=== PATIENT | female | born 1965 | race Caucasian/White ===

== ENCOUNTER 2024-12-22 22:13 | Inpatient (IN) | payer OTHER, SELFPAY ==
[2024-12-22 15:43] VITALS: BP 105/72
[2024-12-22 16:05] LABS: Urine Albumin 2+ (Neg - Trace); Urine Bilirubin Negative (Negative); Urine Character Slightly Cloudy (Clear); Urine Color Yellow; Urine Glucose Negative (Negative); Urine Ketone 1+ (Negative); Urine Leukocyte 3+ (Negative); Urine Nitrite Negative (Negative); Urine Occult Blood 4+ (Negative); Urine Specific Gravity 1.005 (<1.030); Urine Urobilinogen 1+ (Neg - 1+)
[2024-12-22 16:07] LABS: % Basophils 0.2 % (0-2); % Eosinophils 0.1 % (0-6); % Immature Granulocytes 0.4 % (0-0.5); % Lymphocytes 7.7 % (20.5-51.1); % Monocytes 12.2 % (1.7-9.3); % Neutrophils 79.4 % (42.2-75.2); Absolute Immature Granulocytes 0.1 10^3/uL (0-0.05); Absolute Lymphocytes 1.1 10^3/uL (1.2-3.4); Absolute Monocytes 1.7 10^3/uL (0.1-0.6); Absolute Neutrophils 11.3 10^3/uL (1.4-6.5); Hematocrit 38.7 % (39.0-52.0); Hemoglobin 13.3 g/dL (13.0-18.0); Mean Corp Hgb Conc. 34.4 g/dL (33.0-37.0); Mean Corpuscular Hgb 30.6 pg (27.0-31.0); Mean Platelet Volume 11.8 fL (7.4-10.4); Nucleated Red Blood Cells % 0 % (-); Platelet Count 217 10^3/uL (130-400); Red Blood Cell Count 4.35 10^6/uL (4.70-6.10); Red Cell Dist. Width 13.5 % (11.5-14.5); White Blood Cell Count 14.2 10^3/uL (4.8-10.8)
[2024-12-22 16:12] LABS: Urine Bacteria Many (Negative); Urine White Cell 70-80 /HPF (0-5)
[2024-12-22 16:17] LABS: ALT (SGPT) 99 U/L (0-50); AST (SGOT) 56 U/L (17-59); Alkaline Phosphatase 86 U/L (38-126); Blood Urea Nitrogen 8 mg/dl (9-20); Calcium 9.4 mg/dl (8.4-10.2); Carbon Dioxide 22 mmol/L (22-30); Chloride 109 mmol/L (98-107); Glucose 157 mg/dl (70-99); Potassium 4.2 mmol/L (3.5-5.1); Sodium 136 mmol/L (135-145); Total Bilirubin 0.9 mg/dl (0.2-1.3); Total Protein 6.7 g/dl (6.3-8.2); eGFR > 60.00
[2024-12-22] MEDS: NSS 1000 IV (20:07)
[2024-12-22] MEDS: TORADOL 30 MG IV (20:08)
[2024-12-22 20:18] VITALS: BMI 28.5
[2024-12-22 20:25] VITALS: BP 100/64
--- NOTE | 2024-12-22 21:40 | ED.GENMED ---
History of Present Illness
General
Chief Complaint: Flank Pain
Source: patient
Exam Limitations: none
Time Seen by Provider: 12/22/24 19:46
Nursing documentation reviewed up to this point in time: agreed with
History of Present Illness
History of Present Illness:
Patient to ED wt complaint of right flank pain. Symptoms started this weekend. Report nausea, and fever. History of kidney stones but pain tonight is worse. Brought to ED by spouse for eval.l
Past History
Past History
ED Past Medical History: Hypercholesterolemia
Review of Systems
Review of Systems
Allergies reviewed?: Yes
All Other Systems: ROS reviewed and negative except as documented in HPI and ROS
Constitutional: Reports fever
EENT: Reports no symptoms
Respiratory: Reports no symptoms
Cardiac: Reports no symptoms
ABD/GI: Reports nausea
: Reports flank pain
Musculoskeletal: Reports no symptoms
Skin: Reports no symptoms
Neurological: Reports no symptoms
Psychiatric: Reports no symptoms
Phy Exam
General Physical Exam
General Presentation: moderate distress
General age: appears stated age
General Skin: warm and dry
General Habitus: normal
General Mental: alert
Cardiovascular Exam
Cardiovascular Exam: regular rate/rhythm and no edema
Gastrointestinal Exam
Gastrointestinal Exam: normal bowel sounds, soft, no organomegaly, no pulsatile mass, non distended and cva tenderness (right)
Musculoskeletal Exam
Musculoskeletal Exam: full ROM and neuro vasc intact
Skin Exam
Skin Exam: normal color, warm/dry and no rash
Psychiatric Exam
Psychiatric Exam: normal mood/affect
Course
Orders/Labs/Results
Orders:
Orders
12/22/24 15:50
Complete Blood Count/With Diff Urgent
Comprehensive Metabolic Panel Urgent
Urinalysis Reflex To Culture Urgent
Date Specimen was Collected: 12/22/24
Time Specimen was Collected: 15:47
Urine Microscopic Reflex Cult Urgent
Urine Culture Urgent
JANELLE Source: U
Specimen Description:
Date Specimen was Collected: 12/22/24
Time Specimen was Collected: 15:47
12/22/24 19:29
CT Abd/pel Without Iv Or Oral Urgent
Comment:
Reason For Exam: right flank pain, hematuria, UTI
12/22/24 19:58
0.9% Sodium Chloride 1000 ml [Nss] 1,000 ml IV BOLUS
Ketorolac [Toradol] 30 mg IV NOW STA
12/22/24 21:28
Cefepime HCl [Maxipime] 2,000 mg IV NOW STA
12/22/24 21:43
Admit/Transfer Patient As Directed
Co-Sign Provider:
Level of Care: Inpatient admission
Assign to:: Medical/Surgical
Physician / Group: hospitalist
Diagnosis: right nephrolithiasis
Reason for Hospitalization: nephrolithiasis, uti
Expected length of stay greater than two midnights?: Yes
ELOS- Estimated Length of Stay in days: 2
I certify the patient meets the requirements for IP care: Yes
PRN Pain Medication Management As Directed
May give lesser potent ordered pain med per pt: Yes
preference::
Protocol:: Medication orders for pain may be administered in a
manner that supports deferring to patient preference
when the pt is:
- Requesting an ordered lesser potent pain medication.
Least to most potent pain medications are defined
as: acetaminophen < NSAID < tramadol < opioids
(morphine, oxycodone, hydromorphone).
- Requesting a lesser dose of the same medication IF
ORDERED.
- Requesting a less intrusive route of administration
if both routes are prescribed by the provider (PO <
IV).
12/22/24 21:44
Code Status As Directed
Resuscitation Status: Full Code
Sterile Water [Sterile Water For Injection] 10 ml .ROUTE .K-MED ONE
12/22/24 21:47
Blood Culture Urgent
JANELLE Source: Blood/Venous
Specimen Description:
Abnormal Lab Results
12/22/24
15:50
WBC 14.2 H 10^3/uL
(4.8-10.8)
RBC 4.35 L 10^6/uL
(4.70-6.10)
Hct 38.7 L %
(39.0-52.0)
MPV 11.8 H fL
(7.4-10.4)
Abs Immat Gran (auto) 0.1 H 10^3/uL
(0-0.05)
Absolute Neuts (auto) 11.3 H 10^3/uL
(1.4-6.5)
Absolute Lymphs (auto) 1.1 L 10^3/uL
(1.2-3.4)
Absolute Monos (auto) 1.7 H 10^3/uL
(0.1-0.6)
Neutrophils % 79.4 H %
(42.2-75.2)
Lymphocytes % 7.7 L %
(20.5-51.1)
Monocytes % 12.2 H %
(1.7-9.3)
Chloride 109 H mmol/L
(98-107)
BUN 8 L mg/dl
(9-20)
Creatinine 0.6 L mg/dL
(0.7-1.3)
Glucose 157 H mg/dl
(70-99)
ALT 99 H U/L
(0-50)
Urine Ketones 1+ A
(Negative)
Ur Occult Blood Reflex 4+ A
(Negative)
Leukocyte Esterase Rfl 3+ A
(Negative)
Urine RBC 3-6 A /HPF
(0-2)
Urine WBC (Reflex) 70-80 A /HPF
(0-5)
Urine Bacteria (Reflex) Many A
(Negative)
Urine Albumin (Reflex) 2+ A
(Neg - Trace)
12/22/24 15:50
12/22/24 15:50
Vital Signs
Initial and Last Documented VS:
Initial Vital Signs
Temp Pulse Resp BP Pulse Ox
100.4 F H 104 20 105/72 97
12/22/24 15:43 12/22/24 15:43 12/22/24 15:43 12/22/24 15:43 12/22/24 15:43
Last Documented Vital Signs
Temp Pulse Resp BP Pulse Ox
99.8 F 82 18 123/79 96
12/22/24 20:25 12/23/24 00:00 12/23/24 00:00 12/23/24 00:00 12/23/24 00:00
*Radiology
Radiology exam reviewed: radiology read reviewed
*Pulse Oximetry
Patient hypoxic: no
*Critical Care Note
Total Time (30-74mins, 75-104mins- exclusive of procedures): Not Applicable
Update Note
Update Note:
Patient to ED with complaint of right flank pain. CT tonight confirms 3.3mm obstructive right mid ureter stone with mild to moderate hydroureteronephrosis. Temp max 99.8 here tonight but reports temp >101 at home. WBC 14, UA reflecting UTI. Will
admit to hospitalists service. Cefepime started in dept. NPO after midnight, for stent placement tomorrw.
ED Attending Note
-
Portions of this chart may have been created with voice recognition software.� Occasional wrong word or��sound alike� substitutions may have occurred due to the inherent limitations of voice recognition software.
Discharge Plan
Departure
Patient Disposition: Admit
Date of Disposition: 12/22/24
Time of Disposition: 21:45
Presentation/result/management discussed w/ accepting MD/DO: Hospitalist
Patient with high blood pressure during this ER visit?: No
Condition: Fair
Covid-19: Not Applicable
Discharge Problem:
Kidney stone, UTI (urinary tract infection)
Interventions
Interventions:
*Risk Screen - Suicide Last Done: 12/22/24 15:43
*General Assessment Last Done: 12/22/24 15:43
*Neglect/Abuse Screening Last Done: 12/22/24 20:22
*ED- Fall Risk Assessment Last Done: 12/22/24 20:22
*ED COVID-19 Vaccine History Last Done: 12/22/24 20:22
US-Nmiyrs-Owdwyhlbdd Assessment Last Done: 12/22/24 20:25
ED-Male Genitourinary Assessment Last Done: 12/22/24 20:25
--- NOTE | 2024-12-22 21:47 | HPS.HSE ---
Family Physician
-
Family Physician: Ruperto Benitez
Chief Complaint
-
Flank pain
History of Present Illness
This is a 59-year-old female with past medical history significant for hypertension, hyperlipidemia, nephrolithiasis who presents to the emergency department with approximately 2 days of right-sided flank pain with later development of fevers and
chills.
Patient reported that she arose on Sunday with right-sided flank pain. She had nausea but no vomiting. She reports that extremity send of a prior episode of nephrolithiasis when she had a left-sided flank pain and was found to have a left-sided
stone. She did not try to take some medications to control her pain. However despite this she started having fevers the following day. Due to the fever she decided come to the emergency department. She denies any recent use of antibiotics. She
denies any recent travels or sick contacts.
In the ED patient had a temp of 100.4, blood pressure 100/60 with a pulse rate of 98. She was satting 97% on room air.
She had a white count of 14.2, hemoglobin 13.3 and platelet count of 200. Electrolytes were normal. BUN/creatinine were complete normal. Glucose was normal.
UA was positive for leukocyte esterase negative for nitrates, has WBCs and moderate bacteria.
CT of the abdomen pelvis showed a 3.3 mm calculus in the mid distal right ureter with mild to moderate obstructive hydro
Medical History
Past Medical History
Past Medical History: Reports HTN, Hypercholesterolemia and Other (Nephrolithiasis)
Past Surgical History: Reports
Social History
Tobacco: Non-smoker
Alcohol: Occasional
Drug: None
Personal:
Living: With Family
Family History
Family History: Not pertinent
Allergies / Home Medications
Allergies reflects when Allergies were last updated in [facility].
Home Medications with original date entered in [facility]
Allergy/Medication List:
Allergies
Allergy/AdvReac Type Severity Reaction Status Date / Time
No Known Allergies Allergy Unverified 12/22/24 15:47
Home Medications
atorvastatin 20 mg tablet 20 mg PO QPM 12/22/24
Valsartan 80 mg tablet, 80 mg p.o. daily 12/22/24
Metoprolol tartrate 25 mg tablet, 5 mg p.o. twice daily
Review of Systems
-
History Source: Patient
Constitutional: Reports No Symptoms
EENT: Reports No Symptoms
Respiratory: Reports No Symptoms
Cardiac: Reports No Symptoms
Abdomen/GI: Reports No Symptoms
: Reports Flank Pain
Musculoskeletal: Reports No Symptoms
Skin: Reports No Symptoms
Neurological: Reports No Symptoms
Endocrine: Reports No Symptoms
Hematologic/Lymphatic: Reports No Symptoms
Psych: Reports No Symptoms
Physical Exam
Vital Signs
Vital Signs
Temp Pulse Resp BP Pulse Ox
99.8 F 98 28 100/64 91
12/22/24 20:25 12/22/24 20:25 12/22/24 20:25 12/22/24 20:25 12/22/24 20:25
Physical Exam
General: Well Developed, Well Nourished, No Apparent Distress and Comfortable
HEENT: NormoCephalic, Anicteric and Moist mucous membranes
Respiratory: Clear
Cardiac: S1/S2 and Regular Rhythm
GI: Soft, Non Tender, Non Distended and Normal Bowel Sounds
Rectal: Deferred by Provider
Genito-urinary: Deferred by me
Musculoskeletal: No Clubbing, No Cyanosis and No Edema
Skin: Warm
Neuro: AO x 3 and Nonfocal/grossly intact
Hematologic/Lymphatic: No Lymphadenopathy
Psych: Calm
Laboratory Results
-
12/22/24 15:50
12/22/24 15:50
Laboratory Results
Total Bilirubin 0.9 mg/dl (0.2-1.3) 12/22/24 15:50
AST 56 U/L (17-59) 12/22/24 15:50
ALT 99 U/L (0-50) H 12/22/24 15:50
Alkaline Phosphatase 86 U/L (38-126) 12/22/24 15:50
Data Reviewed
-
CT Scan: Report Reviewed by me
Lab Data: Labs Reviewed by me
Old Records: Reviewed
Impression/Plan
-
IMPRESSION:
59-year-old female with recurrent nephrolithiasis who presents with right-sided flank pain and was found to have a fever of 200.4. She has leukocytosis and a positive UA. Concern for infected stone. Patient is currently hemodynamically stable and
in no acute distress. Plan to go to the OR tomorrow for stone extraction.
PLAN:
Nephrolithiasis complicated by urinary tract infection
� Admit to MedSurg
� N.p.o. after midnight
� Blood and urine culture sent
� Continue antibiotics with IV cefepime 2 g daily
� IV fluids
� Pain control and antiemetics
� Urology consulted and aware and patient going to the OR in a.m.
DVT prophylaxis�SCDs for now, can restart medical anticoagulation after procedure
CODE STATUS�full code
[2024-12-22] MEDS: MAXIPIME 2000 MG IV (21:54)
[2024-12-22 22:00] VITALS: BP 100/62
[2024-12-22 23:00] VITALS: BP 124/76
[2024-12-23] VITALS: BP 123/79
[2024-12-23 00:18] VITALS: BP 123/79
[2024-12-23 00:54] VITALS: BP 111/68; BMI 27.7
[2024-12-23] MEDS: NSS 1000 IV (01:14)
[2024-12-23] MEDS: ROCEPHIN 2000 MG IV (05:07)
[2024-12-23] MEDS: STERILE WATER FOR INJECTION 20 ML IV (05:07)
[2024-12-23 06:53] LABS: Blood Urea Nitrogen 10 mg/dl (7-17); Calcium 8.8 mg/dl (8.4-10.2); Carbon Dioxide 20 mmol/L (22-30); Chloride 115 mmol/L (98-107); Estimated Creatinine Clearance 96 ml/min; Glucose 125 mg/dl (70-99); Potassium 4.1 mmol/L (3.5-5.1); Sodium 140 mmol/L (135-145); eGFR > 60.00
[2024-12-23 06:54] LABS: Hematocrit 34.7 % (37.0-47.0); Hemoglobin 11.8 g/dL (12.0-16.0); Mean Corpuscular Hgb 30.4 pg (27.0-31.0); Mean Corpuscular Volume 89.4 fL (81.0-99.0); Mean Platelet Volume 12.5 fL (7.4-10.4); Platelet Count 186 10^3/uL (130-400); Red Blood Cell Count 3.88 10^6/uL (4.20-5.40); Red Cell Dist. Width 13.5 % (11.5-14.5); White Blood Cell Count 12.8 10^3/uL (4.8-10.8)
--- NOTE | 2024-12-23 07:10 | CONS.URO ---
Consultation
-
Date/Time Consultation Performed: 12/23/24 0700
Requesting Provider: ED
Performing Provider: Rico
Reason for Consultation: UTI, obstructing right ureteral stone
Medical History
History of Present Illness
59F w/ h/o nephrolithiasis (on left side - passed) presenting w/ 2 days of right flank pain, fevers, chills.
Noted fever of 101F at home on weekend.
+nausea, poor appetite.
Temp 99.8F in ED.
UA grossly positive for UTI - 70-80 WBCs, many bacteria, negative nitrites.
Past Medical History
Past Medical History: HTN, Hypercholesterolemia and Other (nephrolithiasis)
Past Surgical History:
Social History
Tobacco: Non-smoker
Alcohol: Occasional
Drug: None
Personal:
Living: With Family
Family History
Family History: Reviewed & Not Pertinent
Allergies/Home Medications
Allergies
Allergy/AdvReac Type Severity Reaction Status Date / Time
No Known Allergies Allergy Unverified 12/22/24 15:47
Home Medications
�Medication �Instructions �Recorded �Confirmed �Type
atorvastatin 40 mg tablet 20 mg PO QPM High Cholesterol 12/22/24 12/22/24 History
metoprolol succinate 25 mg 25 mg PO DAILY Blood Pressure 12/22/24 12/22/24 History
tablet,extended release 24 hr
valsartan 80 mg tablet 80 mg PO DAILY Blood Pressure 12/22/24 12/22/24 History
Review of Systems
-
History Source: Patient
A 12 point Review of Systems was completed except as noted: Yes
Physical Exam
Vital Signs
Vital Signs
Temp Pulse Resp BP Pulse Ox
97.8 F 75 20 111/68 96
12/23/24 00:54 12/23/24 00:54 12/23/24 00:54 12/23/24 00:54 12/23/24 00:54
Lab / Testing Results
Laboratory Results
12/23/24 05:58
12/23/24 05:58
Physical Exam
General: Well Developed, Well Nourished and No Apparent Distress
HEENT: Normocephalic and Anicteric
Respiratory: Non Labored Respirations
Cardiac: Regular Rhythm
Breast: Deferred by me
GI: Soft, Non Tender and Non Distended
Rectal: Deferred by Provider
Musculoskeletal: No Edema
Neuro: AO x 3, No Motor Deficits and Nonfocal/Grossly Intact
Psych: Calm and Intact Judgement
Assessment / Plan
-
cUTI in context of obstructive uropathy
Obstructing mid right ureteral stone
WBC: >14 => 12
Cr: 0.6
UA: 70-80 WBCs, many bacteria
UCx pending
CT => 3 mm stone in mid right ureter w/ mild right hydronephrosis, periureteral and perinephric stranding.
Detailed discussion including SDM had w/ patient regarding UTI in context of an obstructing stone and possibility of progression to SIRS/sepsis.
Reviewed risks, benefits, alternatives, and potential complications of ureteroscopy/laser lithotripsy/stone extraction/stent placement.
Potential risks and complications include but not limited to urosepsis, bleeding, ureteral/bladder injury, incontinence, risk of ureteral stricture formation, need for additional procedures/surgeries.
- NPO
- Continue IV Cefepime per Hospitalist pending UCx S/S
- Strain urine
- KUB this AM
- To OR this afternoon for RIGHT stent placement ONLY vs. RIGHT ureteroscopy/laser lithotripsy/stone extraction/stent placement (pending intraop findings)
- Surgical consent signed on chart
D/w patient this AM.
Data Reviewed
-
Total Time Spent with Patient (in minutes): 35
CT Scan: Image personally visualized and interpreted, Report Reviewed by Me, Discussed with Physician and Discussed with Patient
Lab Data: Labs Reviewed, Discussed with Physician and Discussed with Patient
Old Records: Reviewed
[2024-12-23 07:24] VITALS: BP 110/68
[2024-12-23 07:25] LABS: INR 1.12; PT 14.7 Sec (11.4-14.6)
[2024-12-23 07:26] LABS: APTT 36.2 Sec (23.4-35.0)
[2024-12-23] MEDS: LOPRESSOR 25 MG PO ×2 (07:40→19:27)
--- NOTE | 2024-12-23 08:50 | W.PN.HOSP.TC ---
Today's Communication/Plan
-
See PN
Assessment / Plan
Assessment / Plan
59yo F with HLD, HTN, Hx of nephrolithiasis on R came with fevers and R flank pain, found obstructive nephropathy with nephrolith in R ureter.
A/P:
#UTI with obstructive nephrolithiasis
IVF
Ceftriaxone pending Ucx
BCx NTD
Urology for intervention
follow kidney function
#Essential HTN
#HLD
cont home meds
DVT ppx on hep
FUll code
I have spent at least 57min reviewing chart, test results, communication with consultants and providing direct patient care
Anticipated Discharge: 24 - 48 hours
Subjective/Interval History
-
Date of Service: December 23, 2024
Objective Data
-
Labs:
Laboratory Results
12/23/24
05:58
WBC 12.8 H
Hgb 11.8 L
Hct 34.7 L
Plt Count 186
PT 14.7 H
INR 1.12
APTT 36.2 H
Sodium 140
Potassium 4.1
Chloride 115 H
Carbon Dioxide 20 L
BUN 10
Creatinine 0.6
Glucose 125 H
Calcium 8.8
Vital Signs:
Vital Signs
Temp Pulse Resp BP Pulse Ox
97.8 F 75 20 111/68 96
12/23/24 00:54 12/23/24 00:54 12/23/24 00:54 12/23/24 00:54 12/23/24 00:54
Review of Systems
-
History Source: Patient
All other systems: Reviewed and negative
Constitutional: Reports Fever
Physical Exam
-
General: No Apparent Distress
HEENT: Normocephalic
Respiratory: Clear to Auscultation
Cardiac: Regular Rhythm
GI: Soft, Nontender and Nondistended
Genito-urinary: Costovertebral Angle Tend (R)
Musculoskeletal: No Clubbing, No Cyanosis and No Edema
Skin: Warm
Neuro: Awake, Alert, Oriented and AO x 3
Psych: Calm
--- NOTE | 2024-12-23 10:27 | W.SUR.PREOP ---
Pre-Operative Surgical Note
-
I have examined this patient prior to the performance of the scheduled procedure.
The patient's condition is unchanged from the time of the current History and
Physical and the patient is able to undergo the scheduled procedure.
To OR this afternoon for right URS/LL/stone extraction/stent placement vs. stent placement only
Surgical consent signed on patient chart
Maintain NPO
Continue IV Cefepime
--- NOTE | 2024-12-23 12:27 | W.PN.UPDATE ---
Update Note
Progress Note Update
CT imaging reviewed this AM - stone is closer to 1-2 mm in size (punctate) in mid right ureter.
KUB obtained this AM => no radiopaque stone noted.
D/w patient - she is currently asymptomatic w/ regards to right flank/abdominal/pelvic pain.
Denies N/V.
Plan:
- Cancel OR plan
- Regular diet (ordered)
- Continue IV abx pending UCx S/S (prelim results + for UTI)
D/w patient.
D/w RN.
D/w Hospitalist.
--- NOTE | 2024-12-23 12:32 | CM ---
CM reviewed chart, patient seen bedside, initial assessment completed. Patient resides with her in a two story home, bedroom on second floor, two steps to enter. Patient is independent with ADLs/IADLs, denies use of DME, VN, or SNF. Patient
confirms PCP Ruperto Rm, pharmacy [facility]. Patient denies needs at this time. Patient on IV antibiotics. CM will continue to follow for all discharge planning needs.
Plan; home no needs likely
[2024-12-23 15:00] VITALS: BP 101/61
[2024-12-23] MEDS: LIPITOR 20 MG PO (16:15)
[2024-12-23] MEDS: TYLENOL 650 MG PO (19:32)
[2024-12-23 23:39] VITALS: BP 139/71
[2024-12-24] MEDS: STERILE WATER FOR INJECTION 20 ML IV (05:26)
[2024-12-24] MEDS: ROCEPHIN 2000 MG IV (05:26)
[2024-12-24] MEDS: DIOVAN 80 MG PO (07:56)
[2024-12-24] MEDS: LOPRESSOR 25 MG PO ×2 (07:56→19:47)
[2024-12-24 08:07] VITALS: BP 117/79
[2024-12-24 08:33] LABS: % Basophils 0.4 % (0-2); % Eosinophils 0.9 % (0-6); % Immature Granulocytes 0.4 % (0-0.5); % Lymphocytes 17.6 % (20.5-51.1); % Monocytes 16.2 % (1.7-9.3); % Neutrophils 64.5 % (42.2-75.2); Absolute Eosinophils 0.1 10^3/uL (0-0.7); Absolute Lymphocytes 1.6 10^3/uL (1.2-3.4); Absolute Monocytes 1.5 10^3/uL (0.1-0.6); Absolute Neutrophils 5.9 10^3/uL (1.4-6.5); Hematocrit 33.3 % (37.0-47.0); Hemoglobin 11.3 g/dL (12.0-16.0); Mean Corp Hgb Conc. 33.9 g/dL (33.0-37.0); Mean Corpuscular Hgb 30.7 pg (27.0-31.0); Mean Corpuscular Volume 90.5 fL (81.0-99.0); Mean Platelet Volume 12.2 fL (7.4-10.4); Nucleated Red Blood Cells % 0 %; Platelet Count 179 10^3/uL (130-400); Red Blood Cell Count 3.68 10^6/uL (4.20-5.40); Red Cell Dist. Width 13.7 % (11.5-14.5); White Blood Cell Count 9.1 10^3/uL (4.8-10.8)
[2024-12-24 09:05] LABS: ALT (SGPT) 133 U/L (0-35); AST (SGOT) 73 U/L (14-36); Albumin 3.3 g/dl (3.5-5.0); Alkaline Phosphatase 151 U/L (38-126); Blood Urea Nitrogen 11 mg/dl (7-17); Calcium 9.1 mg/dl (8.4-10.2); Carbon Dioxide 22 mmol/L (22-30); Chloride 112 mmol/L (98-107); Estimated Creatinine Clearance 96 ml/min; Glucose 107 mg/dl (70-99); Potassium 4.2 mmol/L (3.5-5.1); Sodium 141 mmol/L (135-145); Total Bilirubin 0.4 mg/dl (0.2-1.3); Total Protein 5.8 g/dl (6.3-8.2); eGFR > 60.00
--- NOTE | 2024-12-24 09:10 | W.PN.HOSP.TC ---
Today's Communication/Plan
-
RUQ US
Follow LFT
LEvaquin
Assessment / Plan
Assessment / Plan
59yo F with HLD, HTN, Hx of nephrolithiasis on R came with fevers and R flank pain, found obstructive nephropathy with nephrolith in R ureter. Repeated Abd XR did not show stone, so urology recommended against nephrolithiasis procedure. Cr remained
normal, R flank pain subsided. Ucx resulted and Levaquin planned and no leukocytosis and fever subsided, however LFT increased
A/P:
#UTI with 3.3 mm calculus in the mid to distal right ureter with mild to moderate obstructive uropathy
IVF
Levaquin
Ucx with K.pneumonia sensitive to fluoroquinolones - with concern for upper urinary tract infection - will treat as pyelonephritis
BCx NTD
Urology decided against intervention with improvement and absent stone on XR
kidney function normal
#Fatty liver disease
#Transaminitis
#Elevated Alk.phos
With R flank persistent discomfort - will order US RUQ to r/o cholecystitis, but no RUQ pain
Cannot exclude cholestasis 2/2 Abx- switch to Levaquin
Follow LFT
#Essential HTN
#HLD
cont home meds
DVT ppx on hep
FUll code
I have spent at least 57min reviewing chart, test results, communication with consultants and providing direct patient care
Anticipated Discharge: Within 24 hours
Subjective/Interval History
-
Date of Service: December 24, 2024
Objective Data
-
Labs:
Laboratory Results
12/24/24
06:54
WBC 9.1
Hgb 11.3 L
Hct 33.3 L
Plt Count 179
Sodium 141
Potassium 4.2
Chloride 112 H
Carbon Dioxide 22
BUN 11
Creatinine 0.6
Glucose 107 H
Calcium 9.1
Total Bilirubin 0.4
AST 73 H
ALT 133 H
Alkaline Phosphatase 151 H
Vital Signs:
Vital Signs
Temp Pulse Resp BP Pulse Ox
98 F 73 16 117/79 99
12/24/24 08:07 12/24/24 08:07 12/24/24 08:07 12/24/24 08:07 12/24/24 08:07
I&O
12/23/24 12/24/24 12/25/24
06:59 06:59 06:59
Intake Total 480 / 480
Balance 480 / 480
Review of Systems
-
History Source: Patient
All other systems: Reviewed and negative
Physical Exam
-
General: Well Nourished and No Apparent Distress
Neuro: Awake, Alert and AO x 3
Psych: Calm
[2024-12-24] MEDS: LEVAQUIN 750 MG PO (10:42)
[2024-12-24] MEDS: FLAGYL 500 MG 100 IV ×2 (10:42→17:20)
--- NOTE | 2024-12-24 11:51 | CM ---
CM reviewed chart, patient seen bedside, reports no needs to CM at this time. Plan remains home no needs. CM will continue to follow for all discharge planning needs.
Plan; home no needs anticipated
--- NOTE | 2024-12-24 11:51 | W.PN.UPDATE ---
Update Note
Progress Note Update
12/23: CTAP w/o IV contrast => stone is closer to 1-2 mm in size (punctate) in mid right ureter.
12/24: KUB obtained in AM => no radiopaque stone noted.
Patient notably asymptomatic w/ regards to right flank/abdominal/pelvic pain.
Denies N/V.
UCx: >100k Klebsiella pneumoniae (resistance to Ampicillin)
Recommendations:
- OK to d/c home from urologic perspective when ready
- PO antibiotic treatment course for cUTI on discharge
- F/U w/ Dr. Gómez in 1 month w/ outpatient RBUS
D/w patient.
D/w Hospitalist.
[2024-12-24 11:54] LABS: Lipase 27 U/L (23-300)
[2024-12-24 15:54] VITALS: BP 99/49
[2024-12-24] MEDS: LIPITOR 20 MG PO (17:20)
[2024-12-24 23:38] VITALS: BP 118/72
[2024-12-25] MEDS: FLAGYL 500 MG 100 IV (00:59)
[2024-12-25 07:25] LABS: % Basophils 0.5 % (0-2); % Eosinophils 2.7 % (0-6); % Immature Granulocytes 0.3 % (0-0.5); % Lymphocytes 29.7 % (20.5-51.1); % Monocytes 16.6 % (1.7-9.3); % Neutrophils 50.2 % (42.2-75.2); Absolute Eosinophils 0.2 10^3/uL (0-0.7); Absolute Lymphocytes 1.8 10^3/uL (1.2-3.4); Hematocrit 35.5 % (37.0-47.0); Hemoglobin 11.7 g/dL (12.0-16.0); Mean Corpuscular Hgb 29.4 pg (27.0-31.0); Mean Corpuscular Volume 89.2 fL (81.0-99.0); Nucleated Red Blood Cells % 0 %; Platelet Count 228 10^3/uL (130-400); Red Blood Cell Count 3.98 10^6/uL (4.20-5.40); Red Cell Dist. Width 13.4 % (11.5-14.5)
[2024-12-25] MEDS: LEVAQUIN 750 MG PO (07:36)
[2024-12-25] MEDS: DIOVAN 80 MG PO (07:36)
[2024-12-25] MEDS: LOPRESSOR 25 MG PO (07:36)
[2024-12-25 08:02] LABS: ALT (SGPT) 171 U/L (0-35); AST (SGOT) 76 U/L (14-36); Albumin 3.6 g/dl (3.5-5.0); Alkaline Phosphatase 204 U/L (38-126); Blood Urea Nitrogen 12 mg/dl (7-17); Calcium 9.2 mg/dl (8.4-10.2); Carbon Dioxide 22 mmol/L (22-30); Chloride 114 mmol/L (98-107); Estimated Creatinine Clearance 96 ml/min; Glucose 105 mg/dl (70-99); Potassium 4.2 mmol/L (3.5-5.1); Sodium 144 mmol/L (135-145); Total Bilirubin 0.5 mg/dl (0.2-1.3); Total Protein 6.1 g/dl (6.3-8.2); eGFR > 60.00
[2024-12-25 08:15] VITALS: BP 110/71
--- NOTE | 2024-12-25 11:30 | CM ---
CM reviewed chart, patient seen bedside, reports no needs to CM at this time. Plan remains home no needs. Patient reports her will provide transportation upon discharge. CM will continue to follow for all discharge planning needs.
Plan; home no needs anticipated
--- NOTE | 2024-12-25 12:21 | W.PN.HOSP.TC ---
Today's Communication/Plan
-
Unclear reason for LFT elevation, currently no clinical symptoms of biliary pathology. WIll get GI opinion
Assessment / Plan
Assessment / Plan
59yo F with HLD, HTN, Hx of nephrolithiasis on R came with fevers and R flank pain, found obstructive nephropathy with nephrolith in R ureter. Repeated Abd XR did not show stone, so urology recommended against nephrolithiasis procedure. Cr remained
normal, R flank pain subsided. Ucx resulted and Levaquin planned and no leukocytosis and fever subsided, however LFT increased
A/P:
#UTI with 3.3 mm calculus in the mid to distal right ureter with mild to moderate obstructive uropathy
IVF
Levaquin, QTc not prolonged. patient was counseled on side effects. No Hx of aneurism
Ucx with K.pneumonia sensitive to fluoroquinolones - with concern for upper urinary tract infection - will treat as pyelonephritis
BCx NTD
Urology decided against intervention with improvement and absent stone on XR
kidney function normal
#Fatty liver disease
#Transaminitis
#Elevated Alk.phos
With R flank persistent discomfort - will order
US RUQ neg for cholecystitis
no RUQ pain
Cannot exclude cholestasis 2/2 Abx- switch to Levaquin
GI consult
#Essential HTN
#HLD
cont home meds
DVT ppx on hep
FUll code
I have spent at least 57min reviewing chart, test results, communication with consultants and providing direct patient care
Anticipated Discharge: Within 24 hours
Subjective/Interval History
-
Date of Service: December 25, 2024
Objective Data
-
Labs:
Laboratory Results
12/25/24
06:55
WBC 6.0
Hgb 11.7 L
Hct 35.5 L
Plt Count 228 D
Sodium 144
Potassium 4.2
Chloride 114 H
Carbon Dioxide 22
BUN 12
Creatinine 0.6
Glucose 105 H
Calcium 9.2
Total Bilirubin 0.5
AST 76 H
ALT 171 H
Alkaline Phosphatase 204 H
Vital Signs:
Vital Signs
Temp Pulse Resp BP Pulse Ox
97.7 F 59 16 110/71 97
12/25/24 08:15 12/25/24 08:15 12/25/24 08:15 12/25/24 08:15 12/25/24 08:15
I&O
12/24/24 12/25/24 12/26/24
06:59 06:59 06:59
Intake Total 480 / 480 340 / 340
Balance 480 / 480 340 / 340
Review of Systems
-
History Source: Patient
All other systems: Reviewed and negative
Physical Exam
-
General: No Apparent Distress
HEENT: Normocephalic
Respiratory: Clear to Auscultation
Cardiac: Regular Rhythm
GI: Soft, Nontender and Nondistended
Musculoskeletal: No Clubbing, No Cyanosis and No Edema
Neuro: Awake, Alert, Oriented and AO x 3
Psych: Calm
--- NOTE | 2024-12-25 14:07 | CON.GI ---
Consultation
-
Date/Time Consultation Requested: 12/25/24 10:15AM
Date/Time Consultation Performed: 12/25/24 2:09am
Requesting Provider: Nick Tapia
Performing Provider: Sukh Garcia
Reason for Consultation: Abnl LFT
Medical History
Chief Complaint / HPI
Chief Complaint: Abnl LFT
History of Present Illness:
pt 59yo female admitted for renal stone, UTI started on Levaquin. LFTs noted to elevate during admission. Denies EtOH. Had liver disease 10-15 yrs ago and went on diet and resolved. She believes her recent LFTs have been normal. Denies new
medications.
Past Medical History
Past Medical History: HTN, Hypercholesterolemia and Other (renal stones)
Past Surgical History:
Social History
Tobacco: Non-Smoker
Alcohol: None
Family History
Family History: Reviewed & Not Pertinent
Allergies / Home Medications
Allergy/AdvReac Type Severity Reaction Status Date / Time
No Known Allergies Allergy Unverified 12/22/24 15:47
�Medication �Instructions �Recorded
atorvastatin 40 mg tablet 20 mg PO QPM High Cholesterol 12/22/24
metoprolol succinate 25 mg 25 mg PO DAILY Blood Pressure 12/22/24
tablet,extended release 24 hr
valsartan 80 mg tablet 80 mg PO DAILY Blood Pressure 12/22/24
levofloxacin 750 mg tablet 750 mg PO DAILY #5 tabs 12/25/24
Review of Systems
-
All other systems: A 12 pt ROS was Negative except as stated above in HPI
Vital Signs
Temp Pulse Resp BP Pulse Ox
97.7 F 59 16 110/71 97
12/25/24 08:15 12/25/24 08:15 12/25/24 08:15 12/25/24 08:15 12/25/24 08:15
Physical Exam
Exam
General: No Apparent Distress
HEENT: Normocephalic and Atraumatic
Respiratory: Non Labored Respirations
GI: Soft, Non Tender, Non Distended and Other (No organomegaly)
Results
WBC 6.0 10^3/uL (4.8-10.8) 12/25/24 06:55
Hgb 11.7 g/dL (12.0-16.0) L 12/25/24 06:55
Hct 35.5 % (37.0-47.0) L 12/25/24 06:55
MCV 89.2 fL (81.0-99.0) 12/25/24 06:55
Plt Count 228 10^3/uL (130-400) D 12/25/24 06:55
Absolute Neuts (auto) 3.0 10^3/uL (1.4-6.5) 12/25/24 06:55
PT 14.7 Sec (11.4-14.6) H 12/23/24 05:58
INR 1.12 12/23/24 05:58
APTT 36.2 Sec (23.4-35.0) H 12/23/24 05:58
Sodium 144 mmol/L (135-145) 12/25/24 06:55
Potassium 4.2 mmol/L (3.5-5.1) 12/25/24 06:55
Chloride 114 mmol/L (98-107) H 12/25/24 06:55
Carbon Dioxide 22 mmol/L (22-30) 12/25/24 06:55
BUN 12 mg/dl (7-17) 12/25/24 06:55
Creatinine 0.6 mg/dL (0.6-1.0) 12/25/24 06:55
Calcium 9.2 mg/dl (8.4-10.2) 12/25/24 06:55
Total Bilirubin 0.5 mg/dl (0.2-1.3) 12/25/24 06:55
AST 76 U/L (14-36) H 12/25/24 06:55
ALT 171 U/L (0-35) H 12/25/24 06:55
Alkaline Phosphatase 204 U/L (38-126) H 12/25/24 06:55
Lipase 27 U/L (23-300) 12/24/24 06:54
Diagnostic Image Results:
US- normal liver, GB
Prior GI Procedures:
EGD:
Colonoscopy:
Assessment / Plan
-
Impression:
Renal stone/UTI- treated w levaquin
Abnl LFT
Recommendations:
Probably due to infx, abx
Add on Hep B/C serologies
Recheck LFTs as outpt after finished abx
F/U with me in the office
Will sign off. OK for dc
-
-
Thank you for consultation and allowing me to participate in the patient's care. Please call the wagon driver salesperson GI physician during the after hours with any questions or concerns.
--- NOTE | 2024-12-25 14:13 | W.DCSUMMARY ---
Discharge Summary
Discharge Data
Date of Admission: 12/22/24
Date of Discharge: 12/25/24
-
Pending Results: No
Hospital Course
59yo F with HLD, HTN, Hx of nephrolithiasis on R came with fevers and R flank pain, found obstructive nephropathy with nephrolith in R ureter. Repeated Abd XR did not show stone, so urology recommended against nephrolithiasis procedure. Cr remained
normal, R flank pain subsided. Ucx resulted and Levaquin planned and no leukocytosis and fever subsided, however LFT increased without clinical symptoms. As per agreement with GI - most likely 2/2 Abx. Recommendation to repeat LFT upon completion of
Abx and follow up with GI as outpatient. Medically stable for d/c home.
I have spent at least 37min reviewing chart, test results, communication with consultants and providing direct patient care
Patient was managed for:
#UTI with 3.3 mm calculus in the mid to distal right ureter with mild to moderate obstructive uropathy
#Fatty liver disease
#Transaminitis
#Elevated Alk.phos
#Essential HTN
#HLD
Discharge Plan
-
Patient Disposition: Home (Routine Discharge)
Discharge Diagnosis/Procedures: nephrolithiasis, UTI
Diet: Low Cholesterol
Activity: As tolerated
Driving Restrictions: As prior to admission
Blood Work: Liver function test with PCP in 4 days
Referrals:
Ruperto Benitez MD [Family Provider] -
Sukh Garcia MD [Active] - in four to six weeks
Matt Gómez MD [Active] - (Please follow up with Dr. Gómez in 1 month after your discharge home from the hospital.)
Prescriptions:
New
levofloxacin 750 mg Tablet
750 mg PO DAILY Qty: 5 0RF
Continued
atorvastatin 40 mg Tablet
20 mg PO QPM
valsartan 80 mg Tablet
80 mg PO DAILY
metoprolol succinate 25 mg Tablet Extended Release 24 Hr
25 mg PO DAILY
Discharge Orders:
Discharge Patient (As Directed); Ordered 12/25/24
Ordered By: Nick Tapia
Discharge Date and Time
Print Language: Tuvaluan
[2024-12-25 14:15] VITALS: BP 115/76
[2024-12-25 15:41] LABS: Hepatitis B Surface Antigen Negative (Negative)
[2024-12-25 16:00] LABS: Hepatitis B Core Ab, Total Negative (Negative); Hepatitis B Surface Antibody Negative; Hepatitis C Antibody Negative (Negative)
== END 2024-12-25 15:24 | disposition home or self-care (01) | DRG 690 ==
LOC: 4 WEST ACU 22:13
PROVIDERS: Emergency Medicine; ADMITTING PHYSICIAN Internal Medicine; ATTENDING PHYSICIAN Internal Medicine; CONSULT PHYSICIAN Specialist; CONSULT PHYSICIAN Surgery; EMERGENCY PHYSICIAN Student in an Organized Health Care Education/Training Program; FAMILY PHYSICIAN Internal Medicine
DX: N39.0 Urinary tract infection, site not specified (principal); N20.2 Calculus of kidney with calculus of ureter; K76.0 Fatty (change of) liver, not elsewhere classified; I10 Essential (primary) hypertension; E78.00 Pure hypercholesterolemia, unspecified; N13.9 Obstructive and reflux uropathy, unspecified; Z87.442 Personal history of urinary calculi
CPT/HCPCS: 74018; 74176; 76700; 80048; 80053; 81003; 81015; 83690; 85025; 85027; 85610; 85730; 86704; 86706; 86803; 87040; 87077; 87086; 87186; 87340; 93005; 96361; 96374; 99285